=== PATIENT | male | born 1945 | race Caucasian/White ===

== ENCOUNTER 2020-03-07 07:28 | Outpatient (CLI) | payer MEDICARE, OTHER | END 2020-03-07 07:29 | disposition home or self-care (01) | LOC: LAB 07:28 | PROVIDERS: ATTEND Internal Medicine | DX: Z01.812 Encounter for preprocedural laboratory examination (principal); J84.9 Interstitial pulmonary disease, unspecified; Z20.828 Contact with and (suspected) exposure to other viral communicable diseases ==

== ENCOUNTER 2020-05-05 16:41 | Emergency (ER) | payer MEDICARE, OTHER ==
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
[2020-05-05] MEDS ORDERED: ACETAMINOPHEN 325 MG TABLET PO STA (16:54)
[2020-05-05] MEDS ORDERED: IBUPROFEN 600 MG TABLET PO STA (16:54)
--- NOTE | 2020-05-05 17:40 | XRAY Report ---
PROCEDURE: Shoulder 3 View RT INDICATIONS: trauma, deformity TECHNIQUE: 4 views of the shoulder were acquired. COMPARISON: None. FINDINGS: Bones: No fracture. Slight superior subluxation of the lateral clavicle relative to the acromion appr oximately one half shaft width. Minimal right shoulder joint degeneration. Trace calcific tendinitis. IMPRESSION: Superior displacement of the lateral clavicle relative the acromion suggestive of AC separation. Plea se correlate clinically for acuity given the absence of prior comparison studies. Reviewed by: Julian Chaves MD on 05/05/2020 5:39 PM PDT Approved by: Julian Chaves MD on 05/05/2020 5:39 PM PDT Station ID: [id number]
[2020-05-05 17:59] VITALS: BP 150/92
== END 2020-05-05 17:59 | disposition home or self-care (01) ==
LOC: ED 16:41
DX: S43.101A Unspecified dislocation of right acromioclavicular joint, initial encounter (principal); V29.88XA Motorcycle rider (driver) (passenger) injured in other specified transport accidents, initial encounter; Y92.410 Unspecified street and highway as the place of occurrence of the external cause
CPT/HCPCS: 73030; 99283; A9270

== ENCOUNTER 2021-01-03 08:08 | Outpatient (CLI) | payer MEDICARE, OTHER | END 2021-01-03 08:09 | disposition home or self-care (01) | LOC: LAB 08:08 | PROVIDERS: ATTEND Internal Medicine | DX: Z01.812 Encounter for preprocedural laboratory examination (principal); J84.9 Interstitial pulmonary disease, unspecified; Z20.822 Contact with and (suspected) exposure to COVID-19 ==

== ENCOUNTER 2021-03-10 14:14 | Outpatient (CLI) | payer MEDICARE, OTHER | END 2021-03-10 14:15 | disposition home or self-care (01) | LOC: LAB 14:14 | PROVIDERS: ATTEND Internal Medicine | DX: Z01.812 Encounter for preprocedural laboratory examination (principal); Z20.822 Contact with and (suspected) exposure to COVID-19 ==

== ENCOUNTER 2021-05-29 09:34 | Outpatient (CLI) | payer MEDICARE, OTHER | END 2021-05-29 09:35 | disposition home or self-care (01) | LOC: LAB 09:34 | PROVIDERS: ATTEND Internal Medicine | DX: Z01.812 Encounter for preprocedural laboratory examination (principal); Z20.822 Contact with and (suspected) exposure to COVID-19 ==

== ENCOUNTER 2021-06-26 09:18 | Outpatient (CLI) | payer MEDICARE, OTHER | END 2021-06-26 09:19 | disposition home or self-care (01) | LOC: LAB 09:18 | PROVIDERS: ATTEND Internal Medicine | DX: Z01.812 Encounter for preprocedural laboratory examination (principal); Z20.822 Contact with and (suspected) exposure to COVID-19 ==